=== PATIENT | female | born 1990 | race African-American/Black ===

== ENCOUNTER 2018-05-10 17:29 | Emergency (ER) | payer BC ==
[~2018-05-10] VITALS: Ht 162.6 cm; Wt 60.3 kg
[2018-05-10 19:25] VITALS: BP 110/79; TEMP 97.9
== END 2018-05-10 19:28 | disposition home or self-care (01) ==
LOC: ED 17:29
DX: S16.1XXA Strain of muscle, fascia and tendon at neck level, initial encounter (principal); S29.012A Strain of muscle and tendon of back wall of thorax, initial encounter; V49.40XA Driver injured in collision with unspecified motor vehicles in traffic accident, initial encounter
CPT/HCPCS: 81025; 99283

== ENCOUNTER 2018-06-14 14:56 | Outpatient (CLI) | payer BC, OTHER | END 2018-06-14 23:19 | disposition home or self-care (01) | LOC: CT 14:56 | DX: M54.5 Low back pain (principal) ==

== ENCOUNTER 2018-08-29 08:11 | Outpatient (CLI) | payer OTHER | END 2018-08-29 20:20 | disposition home or self-care (01) | LOC: RAD 08:11 | DX: T50.A95 Adverse effect of other bacterial vaccines (principal) ==

== ENCOUNTER 2021-03-01 21:54 | Emergency (ER) | payer BC ==
[~2021-03-01] VITALS: Ht 162.6 cm; Wt 60.3 kg
[2021-03-01 22:46] LABS: PLATELET COUNT 325 K/uL (152-353)
[2021-03-01 22:56] LABS: POTASSIUM 3.7 mmol/L (3.6-5.2)
[2021-03-02 00:20] VITALS: BP 133/88; TEMP 97.9
== END 2021-03-02 00:20 | disposition home or self-care (01) ==
LOC: ED 21:54
PROVIDERS: Emergency Medicine Emergency Medical Services
DX: K80.20 Calculus of gallbladder without cholecystitis without obstruction (principal)
CPT/HCPCS: 36415; 80053; 81000; 81025; 82150; 83690; 85027; 96360; 96361; 96375; 99284; J2405; J3490; Q9963

== ENCOUNTER 2022-02-05 20:38 | Emergency (ER) | payer OTHER ==
[~2022-02-05] VITALS: Ht 162.6 cm; Wt 67.1 kg
[2022-02-05 21:52] LABS: PLATELET COUNT 290 K/uL (152-353)
[2022-02-05 22:05] LABS: POTASSIUM 3.5 mmol/L (3.6-5.2); SODIUM 137 mmol/L (136-145)
[2022-02-05 22:43] LABS: PARTIAL THROMBOPLASTIN TIME 28.1 SECONDS (24.5-33.6)
[2022-02-05 23:30] VITALS: BP 118/75; TEMP 98.1
== END 2022-02-05 23:35 | disposition home or self-care (01) ==
LOC: ED 20:38
PROVIDERS: Hospitalist
DX: R07.89 Other chest pain (principal); J40 Bronchitis, not specified as acute or chronic
CPT/HCPCS: 36415; 80053; 81025; 82550; 83880; 84484; 85027; 85379; 85610; 85730; 93005; 96365; 96375; 99284; J0696; J2930

== ENCOUNTER 2022-05-08 23:41 | Emergency (ER) | payer OTHER ==
[~2022-05-08] VITALS: Ht 162.6 cm; Wt 68.0 kg
[2022-05-09 01:30] VITALS: BP 123/83; TEMP 97.8
== END 2022-05-09 01:30 | disposition home or self-care (01) ==
LOC: ED 23:41
DX: M79.18 Myalgia, other site (principal); R51.9 Headache, unspecified
CPT/HCPCS: 36415; 81002; 81025; 96360; 96361; 96374; 96375; 99284; J1170; J2405

== ENCOUNTER 2022-11-11 22:29 | Emergency (ER) | payer OTHER ==
[~2022-11-11] VITALS: Ht 162.6 cm; Wt 63.5 kg
[2022-11-11 22:50] VITALS: BP 109/80; TEMP 97.9
== END 2022-11-11 22:50 | disposition left against medical advice (07) ==
LOC: ED 22:29
DX: Z53.21 Procedure and treatment not carried out due to patient leaving prior to being seen by health care provider (principal)
CPT/HCPCS: 99281